=== PATIENT | female | born 1975 | race American Indian/Alaskan Native ===

== ENCOUNTER 2017-02-16 06:55 | Emergency (ER) | payer OTHER ==
[2017-02-16 07:30] VITALS: BP 110/55
--- NOTE | 2017-02-16 08:33 | Emergency Department Report ---
HPI - General Chief Complaint: Upper Respiratory Infection Time Seen by Provider: 02/16/17 08:17 - HPI HPI: This is a 41-year-old female with history of chronic bronchitis presents to ED complaining of consistent nonproductive coughing, congestion, runny nose 2 weeks. Patient states she is at home remedies for the past 2 weeks such as Robitussin-DM, Francisco's with no relief. Patient states the cough and has become so consistent that she coughs so much and sometimes resulted in her vomiting. Patient states she denies fever, nausea, abdominal pain, chest pain, shortness of breath, dizziness, headache ED Past Medical Hx - Past Medical History Previous Medical History?: No - Surgical History Past Surgical History?: Yes Additional Surgical History: Partial hysterectomy, tonsillectomy, tubaligation - Social History Smoking Status: Never Smoker Substance Use Type: Alcohol, Non Opiate Pain, Other - Medications Home Medications: Home Medications Medication Instructions Recorded Confirmed Last Taken Type Acetamin/Codeine 120-12Mg/5 ml 5 ml PO TID #60 ml 02/16/17 Unknown Rx [Tylenol/Codeine 120-12 mg/5 ml] Azithromycin [Zithromax] 250 mg PO DAILY #6 tablet 02/16/17 Unknown Rx Pseudoephedrine ER [Sudafed 12 Hr] 120 mg PO BID #15 tablet.er 02/16/17 Unknown Rx ED Review of Systems ROS: Stated complaint: FLU SYMPTOMS Other details as noted in HPI Constitutional: denies: chills, fever Eyes: denies: eye pain, eye discharge, vision change ENT: denies: ear pain, throat pain Respiratory: denies: cough, shortness of breath, wheezing Cardiovascular: denies: chest pain, palpitations Endocrine: no symptoms reported Gastrointestinal: denies: abdominal pain, nausea, diarrhea Genitourinary: denies: urgency, dysuria, discharge Musculoskeletal: denies: back pain, joint swelling, arthralgia Skin: denies: rash, lesions Neurological: denies: headache, weakness, paresthesias Psychiatric: denies: anxiety, depression Hematological/Lymphatic: denies: easy bleeding, easy bruising Physical Exam - Physical Exam Vital Signs: Vital Signs 02/16/17 07:26 Temperature 98.4 F Pulse Rate 85 Respiratory 18 Rate Blood Pressure 110/55 O2 Sat by Pulse 97 Oximetry Physical Exam: GENERAL: Alert and oriented x3, no apparent distress, Normal Gait, atraumatic. HEAD: Head is normocephalic and a-traumatic. EYES: Extra ocular muscles are intact. Pupils are equal, round, and reactive to light and accommodation. EARS: symetrical, atraumatic, non tender, ear canal clear and moderate cerumen, tympanic membrance non inflamed but clear fluid visualized behind bilaterally. gross auditory nml bilaterally. NOSE: Nose symetrical, Nontender,Nares appeared mildly erythematous. MOUTH:Mouth is well hydrated and without lesions. Tonsils nonerythematous or swollen, Uvula midline, Tongue not elevated. Mucous membranes are moist. Posterior pharynx clear, no exudate or lesions. Patent airways. NECK: Supple. Non edematous, No lymphadenopathy or thyromegaly. LUNGS: Symetrical with respiration, No wheezing, no rales or crackles, CTAB. HEART: S1, S2 present, regular rate and rhythm without murmur, no rubs, no gallops. Non tender to palpation BACK: Full range of motion, no spinal tenderness, nontender to palpation. SKIN: Warm and dry, No lesions, No ulceration or induration present. ED Course Vital Signs 02/16/17 07:26 Temperature 98.4 F Pulse Rate 85 Respiratory 18 Rate Blood Pressure 110/55 O2 Sat by Pulse 97 Oximetry ED Medical Decision Making - Radiology Data Radiology results: report reviewed, image reviewed Ordering Physician: LUKE MCCOLLUM Date of Service: 02/16/17 Procedure(s): XR chest routine 2V Accession Number(s): [id number] cc: LUKE MCCOLLUM Fluoro Time In Minutes: ROUTINE CHEST, TWO VIEWS: HISTORY: Chronic cough. The trachea, heart, mediastinal contour, lung lofton and bony thorax are unremarkable. IMPRESSION: Unremarkable chest x-ray. Transcribed By: TTR Dictated By: TRAVIS FUENTES JR, MD Electronically Authenticated By: TRAVIS FUENTES JR, MD Signed Date/Time: 02/16/17 0913 - Medical Decision Making 41-year-old female presents with upper respiratory infection with bronchitis ED course: Patient received a breathing treatment, prednisone, cough suppressant in ED Chest x-ray ordered. Chest x-ray shows no abnormal findings I discussed the findings with the patient. I discussed the patient bronchitis could take 4-6 weeks to get better. I discussed antibiotic therapy for the next 5 days for URI. Vital signs are normalized patient has no posterior acute distress Patient's instructions given. I discussed the patient has any worsening symptoms or new symptoms arise to return to ED immediately Critical care attestation.: If time is entered above; I have spent that time in minutes in the direct care of this critically ill patient, excluding procedure time. ED Disposition Clinical Impression: Bronchitis URI (upper respiratory infection) Qualifiers: URI type: unspecified URI Qualified Code(s): J06.9 - Acute upper respiratory infection, unspecified Disposition: TO HOME OR SELFCARE Is pt being admited?: No Does the pt Need Aspirin: No Condition: Stable Instructions: Chronic Bronchitis (ED) Additional Instructions: Take medication as prescribed Continue with symptomatic relief such as Francisco's, nebulizer treatment as well as steam therapy Follow-up with the primary care physician as referred. If she have worsening symptoms such as difficulty breathing, chest pain or any new symptoms return to ED Prescriptions: Acetamin/Codeine 120-12Mg/5 ml [Tylenol/Codeine 120-12 mg/5 ml] 5 ml PO TID #60 ml Azithromycin [Zithromax] 250 mg PO DAILY #6 tablet Pseudoephedrine ER [Sudafed 12 Hr] 120 mg PO BID #15 tablet.er Referrals: PRIMARY CARE, [Primary Care Provider] - 3-5 Days [facility] [Outside] - 3-5 Days [facility] [Outside] - 3-5 Days [facility] [Outside] - 3-5 Days Forms: Accompanied Note, Work/School Release Form(ED) Time of Disposition: 09:41
[2017-02-16] MEDS ORDERED: DELTASONE PO ONE (08:37)
[2017-02-16] MEDS ORDERED: TYLENOL/CODEINE PO ONE (08:37)
[2017-02-16] MEDS ORDERED: DUONEB *Not for PRN Use IH ONE (09:11)
--- NOTE | 2017-02-16 09:18 | XRay Report ---
ROUTINE CHEST, TWO VIEWS: HISTORY: Chronic cough. The trachea, heart, mediastinal contour, lung lofton and bony thorax are unremarkable. IMPRESSION: Unremarkable chest x-ray.
== END 2017-02-16 09:56 | disposition home or self-care (01) ==
LOC: ED 06:55
DX: J40 Bronchitis, not specified as acute or chronic (principal); J06.9 Acute upper respiratory infection, unspecified
CPT/HCPCS: 71020; 94640; 99283; J7512